=== PATIENT | male | born 1980 | race Caucasian/White ===

== ENCOUNTER 2018-07-08 00:18 | Outpatient (CLI) | payer BC, SELFPAY ==
[2018-07-08 10:00] LABS: ALT 46 U/L (12-78); AST 20 U/L (15-37); Albumin 3.5 g/dL (3.4-5.0); Alkaline Phosphatase 66 U/L (46-116); Anion Gap 9.4 mmol/L (3-11); BUN 15 mg/dL (7-18); Bilirubin, Total 0.7 mg/dL (0.2-1.0); CO2 27.6 mmol/L (21.0-32.0); Calcium 8.3 mg/dL (8.5-10.1); Chloride 103 mmol/L (98-107); Cholesterol 163 mg/dL (50-200); Glucose 104 mg/dL (70-100); HDL Cholesterol 47 mg/dL (40-60); LDL CHOLESTEROL 105 mg/dL (<100); Potassium 3.8 mmol/L (3.5-5.1); Sodium 140 mmol/L (136-145); Total Protein 7.2 g/dL (6.4-8.2); Triglyceride 80 mg/dL (30-150)
== END 2018-07-08 00:38 ==
PROVIDERS: PCP Physician Assistant Medical; Visit Provider Physician Assistant Medical
DX: Z00.00 Encounter for general adult medical examination without abnormal findings (principal); I10 Essential (primary) hypertension
CPT/HCPCS: 36415; 80053; 80061; 83721

== ENCOUNTER 2018-10-29 10:13 | Emergency (ER) | payer OTHER, SELFPAY ==
[2018-10-29 10:36] VITALS: BP 209/104; PULSE 101; RESP 16; TEMP 37.4; O2SAT 97
--- NOTE | 2018-10-29 10:56 | W.ED.GENAD ---
Discharge Plan Disposition Patient Disposition: HOME Condition: Improving Discharge Details Chief Complaint: Cellulitis Clinical Impression: Cellulitis of leg, right Primary Care Provider: Robert Cottrell ED Provider: Pierre Kan Home Meds and New Rx's Prescriptions: New cefdinir 300 mg capsule 300 mg PO Q12H 10 Days Qty: 20 RF: 0 No Action hydrochlorothiazide 25 MG tablet 50 mg PO QAM RF: 0 amlodipine 10 mg Tablet 10 mg PO DAILY RF: 0 losartan 100 mg Tablet 100 mg PO DAILY RF: 0 Discharge Instructions Instructions: Cellulitis (ED) Additional Instructions: We will arrange a follow-up appointment for you to [facility]. Home to rest today. Elevate the leg above the level of heart to reduce swelling. Take antibiotics as prescribed, next dose tomorrow morning. 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 Associate with fever and shaking chills. IV placed, labs including blood cultures obtained, patient referred for x-ray to rule out underlying bony changes. Patient does have white blood cell count of 9, lactic acid 1.5. Patient given a liter fluid, 2 g of ceftriaxone. His x-ray does not reveal underlying evidence of osteomyelitis. Improved following liter of fluid and antibiotics. I will place on oral cephalosporin. We will ask care management to arrange an outpatient follow-up with [facility] later this week. Discussed home care as well as return precautions to the ER with the patient and his mother prior to discharge Lab Data Lab results reviewed: Yes I reviewed the patient's lab results. Laboratory Results - last 24 hr 10/29/18 10/29/18 10/29/18 11:39 11:39 11:39 WBC 9.43 RBC 5.66 Hgb 15.6 Hct 45.6 MCV 80.6 MCH 27.6 MCHC 34.2 RDW 13.5 Plt Count 222 MPV 10.1 Immature Gran % 0.1 Neutrophils % 83.9 Lymphocytes % 8.7 Monocytes % 6.8 Eosinophils % 0.4 Basophils % 0.1 Absolute Neutrophils 7.91 H Absolute Lymphocytes 0.82 L Absolute Monocytes 0.64 Absolute Eosinophils 0.04 Absolute Basophils 0.01 Sodium 135 L Potassium 3.4 L Chloride 96 L Carbon Dioxide 32.7 H Anion Gap 6.3 BUN 13 Creatinine 1.08 Estimated GFR/1.73 m2 >= 60.00 Glucose 97 Lactate 1.5 H Calcium 9.3 Total Bilirubin 1.0 AST 18 ALT 37 Alkaline Phosphatase 64 Total Protein 8.7 H Albumin 3.8 HPI General Mode of arrival: ambulatory. Date/Time Provider Initiated Documentation: 10/29/18 10:37. Limitations to Documentation: no limitations. Information obtained by: patient and family. History of Present Illness 38 year old M presents to the emergency department with the chief complaint of Right distal tibia swelling, erythema that began yesterday, described as moderate, Quality is described as aching, dull and constant, and is localized to the right and lower extremity. Patient reports no radiation. Patient started experiencing this day(s) and it has been constant. No relieving factors improve symptom(s), No exacerbating factors reported . Patient notes fever/chills. Patient did receive the following treatments prior to arrival, none Related Data Home Medications Medication Instructions Recorded Confirmed hydrochlorothiazide 50 mg PO QAM 12/01/13 10/29/18 amlodipine 10 mg PO DAILY 10/29/18 10/29/18 cefdinir 300 mg PO Q12H 10 Days #20 cap 10/29/18 losartan 100 mg PO DAILY 10/29/18 10/29/18 Previous Rx's Medication Instructions Recorded cefdinir 300 mg PO Q12H 10 Days #20 cap 10/29/18 Allergies Allergy/AdvReac Type Severity Reaction Status Date / Time amoxicillin [Amoxicillin] Allergy Unverified 10/29/18 10:40 General Stated Complaint: Cellulitis PAULINO: 4 Review of Systems Review of Systems 8 systems reviewed and otherwise negative [facility] Social History Smoking/Tobacco Use Status: Current every day Exam Narrative Exam Narrative: GEN: awake, alert, oriented 3. Pleasant, well groomed, interactive. HEAD: Normocephalic, atraumatic ENT: Mucous membranes moist, oropharynx unremarkable, External ear exam unremarkable EYES: PERRL, EOMI NECK: Full ROM, no ELLIOTT, no menigismus CHEST/RESP: Nontender, clear to auscultation bilateral, no wheeze/rhonchi/rales CARDIOVASCULAR: RRR, no murmur, rub jairon. 2+ Rad pulse bilateral ABDOMEN: Soft, nontender, no mass. +Bowel sounds EXT: Full ROM, right pretibial trace edema, erythema, mild tenderness. No significant skin breakdown. No lesions. 2+ DP bilaterally. Neuro: Grossly normal neurologic exam, conversant, interactive. Psych: Speech fluent, thoughts congruent, affect normal Course Vital Signs Temperature 37.4 C 10/29/18 10:36 Pulse 101 H 10/29/18 10:36 Respiratory Rate 16 10/29/18 10:36 Blood Pressure 209/104 H 10/29/18 10:36 Pulse Oximetry 97 10/29/18 10:36 Temperature 37.4 C 10/29/18 10:36 Pulse 101 H 10/29/18 10:36 Respiratory Rate 16 10/29/18 10:36 Respiratory Effort Non-Labored 10/29/18 10:38 Blood Pressure 209/104 H 10/29/18 10:36 Blood Pressure Position Sitting 10/29/18 10:36 Pulse Oximetry 97 10/29/18 10:36 Oxygen Delivery Method Room Air 10/29/18 10:36 Oxygen Flow Rate 0 10/29/18 10:36 Pain Level 6 10/29/18 10:36
[2018-10-29 11:49] LABS: Abs Immature Grans 0.01 k/cumm (0.0-0.09); Absolute Basophil Count 0.01 k/cumm (0.0-0.2); Absolute Eosinophil Count 0.04 k/cumm (0.0-0.7); Absolute Lymphocyte Count 0.82 k/cumm (1.2-3.4); Absolute Monocyte Count 0.64 k/cumm (0.11-0.7); Absolute Neutrophil Count 7.91 k/cumm (1.2-6.7); Basophils % 0.1; Eosinophils % 0.4; HCT 45.6 % (40.0-50.0); HGB 15.6 g/dL (13.5-17.5); Immature Grans % 0.1; Lymphocytes % 8.7; Mean Corp. HGB Concentration 34.2 g/dL (32.0-36.0); Mean Corpuscular Hemoglobin 27.6 pg (27.0-33.0); Mean Corpuscular Volume 80.6 fL (80-95); Mean Platelet Volume 10.1 fL (8.0-11.0); Monocytes % 6.8; Neutrophils % 83.9; Platelet Count 222 x1000/uL (130-400); RBC 5.66 m/cumm (4.50-6.00); RBC Distribution Width 13.5 % (11.8-14.1); White Blood Cell Count 9.43 k/cumm (4.4-10.8)
[2018-10-29 11:50] LABS: Lactate-non-spesis 1.5 mmol/l (0.6-1.4)
[2018-10-29 12:08] LABS: ALT 37 U/L (12-78); AST 18 U/L (15-37); Albumin 3.8 g/dL (3.4-5.0); Alkaline Phosphatase 64 U/L (46-116); Anion Gap 6.3 mmol/L (3-11); BUN 13 mg/dL (7-18); CO2 32.7 mmol/L (21.0-32.0); CREATININE 1.08 mg/dL (0.70-1.30); Calcium 9.3 mg/dL (8.5-10.1); Chloride 96 mmol/L (98-107); Glucose 97 mg/dL (70-100); Potassium 3.4 mmol/L (3.5-5.1); Sodium 135 mmol/L (136-145); Total Protein 8.7 g/dL (6.4-8.2)
--- NOTE | 2018-10-29 12:31 | DI.RAD_ITS ---
SYMPTOM/DIAGNOSIS: RT DISTAL ANT SWELLING, PAIN RIGHT TIBIA AND FIBULA: There are no prior comparison exams. An intramedullary sue is seen in the tibia. There are old healed fractures of the proximal and distal portions of the fibula. No acute fracture is seen. The knee and ankle are unremarkable and show mild degenerative changes. IMPRESSION: No acute abnormality.
[2018-10-29] MEDS: Normal Saline 1,000 ML 1000 ML IV (12:39)
--- NOTE | 2018-10-29 13:52 | DI.VRAD_ITS ---
EXAM: XR Right Tibia and Fibula, 2 Views EXAM DATE/TIME: 10/29/2018 10:56 AM CLINICAL HISTORY: 38 years old, male; Signs and symptoms; Swelling, leg or foot; Prior surgery; Surgery date: 6+ months; Surgery type: Screws in proximal and distal tibia TECHNIQUE: XR Right tibia and fibula 2 views COMPARISON: No relevant prior studies available. FINDINGS: Bones/joints: A longstem intramedullary sue extends through the tibia, secured with one screw proximally and 2 screws distally. It traverses a chronic appearing fracture of the distal shaft. There are also chronic appearing fractures of the fibula in its proximal to mid and distal aspects. No acute fracture is identified. The partially evaluated knee and ankle joints appear normally aligned and demonstrate degenerative changes. Soft tissues: The soft tissues appear grossly unremarkable. IMPRESSION: Remote posttraumatic, postoperative changes as described. Dictated and Authenticated by: Galindo Martinez MD. Ordering:SRINI Jay MD
--- NOTE | 2018-10-30 08:23 | PDOC.ERCMPRO ---
Care Management Progress Note 10/30-Dr. Kan requested assistance with a PCP (Simba) f/u on 10/30 for right leg cellulitis. Referral faxed to [facility] this am.
== END 2018-10-29 13:46 | disposition home or self-care (01) ==
PROVIDERS: Emergency Provider Emergency Medicine; PCP Physician Assistant Medical
DX: R60.0 Localized edema (principal); R50.9 Fever, unspecified; L03.115 Cellulitis of right lower limb; I10 Essential (primary) hypertension
CPT/HCPCS: 36415; 80053; 87040; 96361; 96365; 99284; 73590; 83605; 85025

== ENCOUNTER 2018-11-03 19:01 | Outpatient (REF) | payer OTHER, SELFPAY | END 2018-11-03 19:21 | LOC: NCHCN 19:01 | PROVIDERS: PCP Physician Assistant Medical; Visit Provider Physician Assistant Medical | DX: L03.115 Cellulitis of right lower limb (principal) | CPT/HCPCS: 87070; 87205 ==

== ENCOUNTER 2019-03-30 19:37 | Outpatient (REF) | payer OTHER, SELFPAY ==
[2019-03-30 19:14] LABS: Anion Gap 14.1 mmol/L (3-11); BUN 16 mg/dL (7-18); CO2 25.9 mmol/L (21.0-32.0); CREATININE 1.06 mg/dL (0.70-1.30); Chloride 102 mmol/L (98-107); Glucose 93 mg/dL (70-100); Potassium 3.1 mmol/L (3.5-5.1); Sodium 142 mmol/L (136-145)
== END 2019-03-30 19:57 ==
LOC: NCHCN 19:37
PROVIDERS: PCP Physician Assistant Medical; Visit Provider Physician Assistant Medical
DX: I10 Essential (primary) hypertension (principal)
CPT/HCPCS: 80048

== ENCOUNTER 2019-04-25 01:20 | Outpatient (CLI) | payer OTHER, SELFPAY ==
--- NOTE | 2019-04-25 14:45 | NS.NUTBLAN_ITS ---
DESCRIPTION: Rai Steven presents for nutrition consult in preparation for bariatric surgery. WEIGHT TODAY: 381.2 HEIGHT: 74 BMI: 49 Rai states he has tried multiple weight loss plans without success. He has been overweight most of his life. He does not feel he has an alternative way to lose weight. He recognizes his health risks at this weight. He eats mostly wild game with bread and pasta. He loves vegetables but does not eat them daily. He has 3 eggs wit htoast and coffee for breakfast; sandwich for lunch; last night he had steak and cottage cheese for supper. He does not eat fruit but wonders about avocado for his spread on toast. He states he eats very fast and is trying to slow down recognizing he can eat beyond fullness when he eats fast. He does not drink soda. 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 He denies stress. INTERVENTION: Discussed balanced meal plan includes vegetables and fruit daily and he agrees to this. Discussed portion control; his eating style. Discussed possible changes for preparation for surgery with the focus on portions. PLAN: Rai will continue to be aware of speed he eats and slow down; consider his portions and attempt to start with normal portions that include 1/2 his plate as vegetable; use 1/2 avocado daily instead of other fats per his desire
== END 2019-04-25 01:40 ==
PROVIDERS: PCP Physician Assistant Medical; Visit Provider Dietitian, Registered
DX: E66.01 Morbid (severe) obesity due to excess calories (principal); Z68.42 Body mass index [BMI] 45.0-49.9, adult; Z01.818 Encounter for other preprocedural examination; Z71.3 Dietary counseling and surveillance
CPT/HCPCS: 97802

== ENCOUNTER 2019-04-25 22:37 | Outpatient (REF) | payer OTHER, SELFPAY ==
[2019-04-25 20:24] LABS: Anion Gap 9.6 mmol/L (3-11); BUN 22 mg/dL (7-18); CO2 27.4 mmol/L (21.0-32.0); CREATININE 0.81 mg/dL (0.70-1.30); Calcium 9.4 mg/dL (8.5-10.1); Chloride 105 mmol/L (98-107); Glucose 96 mg/dL (70-100); Potassium 3.5 mmol/L (3.5-5.1); Sodium 142 mmol/L (136-145)
== END 2019-04-25 22:57 ==
LOC: NCHCN 22:37
PROVIDERS: PCP Physician Assistant Medical; Visit Provider Physician Assistant Medical
DX: I10 Essential (primary) hypertension (principal)
CPT/HCPCS: 80048

== ENCOUNTER 2019-05-24 00:49 | Outpatient (CLI) | payer OTHER, SELFPAY ==
--- NOTE | 2019-05-24 15:00 | NS.NUTBLAN_ITS ---
DESCRIPTION: Antonio Steven presents for nutrition consult for his second bariatric surgery visit. WEIGHT: 386.4 HEIGHT: 74 BMI: 49.6 Antonio has increased fruits and vegetables describing recipes he has used for [employer] [facility] [facility]. He has cut down pasta, ice cream, removed sugar from coffee, cut portions overall, and has only an occasional candy bar. He has 6 eggs and 2 toast in AM, He does take 2 sandwiches for lunch and often eats them early. He is physically active only if it occurs at work. INTERVENTION: Discussed hunger and he feels he truly is hungry when he eats. Discussed cutting down on bread with suggestions for a portable lunch. He does not drink carbonated beverages. He wants to increase his physical activity and has a treadmill ordered. PLAN: He will add multivitamin He will increase his physical activity when his treadmill arrives
== END 2019-05-24 01:09 ==
PROVIDERS: PCP Physician Assistant Medical; Visit Provider Dietitian, Registered
DX: E66.01 Morbid (severe) obesity due to excess calories (principal); Z71.3 Dietary counseling and surveillance
CPT/HCPCS: 97803

== ENCOUNTER 2019-12-24 08:53 | Outpatient (REF) | payer OTHER, SELFPAY ==
[2019-12-24 19:23] LABS: Calculated LDL 114 mg/dL (<100); Cholesterol 171 mg/dL (<200); HDL Cholesterol 42 mg/dL (40-60); Triglyceride 79 mg/dL (<150)
== END 2019-12-24 09:13 ==
LOC: NCHCN 08:53
PROVIDERS: PCP Physician Assistant Medical; Visit Provider Physician Assistant Medical
DX: I10 Essential (primary) hypertension (principal)
CPT/HCPCS: 80053; 80061

== ENCOUNTER 2020-03-25 10:19 | Outpatient (REF) | payer OTHER, SELFPAY ==
[2020-03-25 19:22] LABS: ALT 37 U/L (16-63); AST 18 U/L (15-37); Albumin 3.6 g/dL (3.4-5.0); Alkaline Phosphatase 57 U/L (46-116); Anion Gap 9.6 mmol/L (3-11); BUN 15 mg/dL (7-18); Bilirubin, Total 0.5 mg/dL (0.2-1.0); CO2 25.4 mmol/L (21.0-32.0); CREATININE 0.91 mg/dL (0.70-1.30); Calcium 9.3 mg/dL (8.5-10.1); Chloride 102 mmol/L (98-107); Glucose 110 mg/dL (74-106); Potassium 3.7 mmol/L (3.5-5.1); Sodium 137 mmol/L (136-145); Total Protein 7.2 g/dL (6.4-8.2)
== END 2020-03-25 10:39 ==
LOC: NCHCN 10:19
PROVIDERS: PCP Physician Assistant Medical; Visit Provider Physician Assistant Medical
DX: I10 Essential (primary) hypertension (principal)
CPT/HCPCS: 80053

== ENCOUNTER 2020-12-12 18:59 | Outpatient (REF) | payer OTHER, SELFPAY ==
[2020-12-12 19:06] LABS: Hemoglobin A1C 5.5 % (<5.7)
[2020-12-12 19:12] LABS: ALT 35 U/L (16-63); AST 16 U/L (15-37); Albumin 3.9 g/dL (3.4-5.0); Alkaline Phosphatase 66 U/L (46-116); Anion Gap 7.6 mmol/L (3-11); BUN 18 mg/dL (7-18); Bilirubin, Total 0.5 mg/dL (0.2-1.0); CO2 29.4 mmol/L (21.0-32.0); CREATININE 0.9 mg/dL (0.70-1.30); Calcium 9.6 mg/dL (8.5-10.1); Calculated LDL 119 mg/dL (<100); Chloride 105 mmol/L (98-107); Cholesterol 198 mg/dL (<200); Glucose 95 mg/dL (74-106); HDL Cholesterol 45 mg/dL (40-60); Potassium 3.4 mmol/L (3.5-5.1); Sodium 142 mmol/L (136-145); Total Protein 7.5 g/dL (6.4-8.2); Triglyceride 173 mg/dL (<150)
== END 2020-12-12 19:00 | disposition home or self-care (01) ==
LOC: NCHCN 18:59
PROVIDERS: PCP Physician Assistant Medical; Visit Provider Physician Assistant Medical
DX: I10 Essential (primary) hypertension (principal); E66.01 Morbid (severe) obesity due to excess calories
CPT/HCPCS: 80053; 80061; 83036

== ENCOUNTER 2021-06-29 08:31 | Outpatient (REF) | payer OTHER, SELFPAY ==
--- OUTSIDE RECORDS SUMMARY | 2021-06-29 08:32 | XMS_ITS ---
:1980 Author Care Team Providers Name Role Phone DELL MILES Primary Care Provider [phone] [facility] OTHER [phone] Allergies Code Code System Name Reaction Severity Status Onset 723 RxNorm Amoxicillin ? ? Active ? 3640 RxNorm Doxycycline ? ? Active ? Medications Name Status Start Date Stop Date ? ? amlodipine 10 mg tablet Active ? Not avai lable cefdinir 300 mg capsule Completed ? 12/07/19 hydrochlorothiazide 50 mg tablet Active ? Not available losartan 100 mg tablet Active ? Not avail able Problems Name Status Onset Date Source ? Morbid Obesity Active ? ? Impotence Active ? ? Obstructive Sleep Apnea Syndrome Active ? ? Hypertensive Disorder Active ? ? Snoring Active ? ? Decreased Testosterone Level Active ? ? Procedures None recorded. Results Lab Results None recorded. Past Encounters None recorded. Social History Tobacco Smoking Status Never Smoker Vaccine List Vaccine Type COVID-19, mRNA, LNP-S, PF, 100 mcg/0.5 m L dose 12/23/2020?100 mcg 01/20/2021?0.5 mL Plan of Care Reminders Provider Appointments None ? ? recorded. Lab None ? ? recorded. Referral None ? ? recorded. Procedures None ? ? recorded. Surgeries None ? ? recorded. Imaging None ? ? recorded. Vitals 06/13/2019 10:15AM Office 30 Height Weight BMI Blood Pressure 185.42 cm 179.17 kg 52.1 kg/m2 175/89 mm[Hg] 02/09/2019 08:30AM Office 30 Height Weight BMI Blood Pressure 185.42 cm 175.54 kg 51.1 kg/m2 130/74 mm[Hg] 12/06/2018 09:30AM New Patient 43 Height Weight BMI Blood Pressure 185.42 cm 168.1 kg 48.9 kg/m2 145/86 mm[Hg]
[2021-06-29 14:57] LABS: ALT 38 U/L (16-63); AST 18 U/L (15-37); Albumin 3.7 g/dL (3.4-5.0); Alkaline Phosphatase 54 U/L (46-116); Anion Gap 7.4 mmol/L (3-11); BUN 9 mg/dL (7-18); Bilirubin, Total 0.6 mg/dL (0.2-1.0); CO2 28.6 mmol/L (21.0-32.0); CREATININE 0.9 mg/dL (0.70-1.30); Chloride 106 mmol/L (98-107); Glucose 96 mg/dL (74-106); Potassium 3.6 mmol/L (3.5-5.1); Sodium 142 mmol/L (136-145); Total Protein 7.1 g/dL (6.4-8.2)
== END 2021-06-29 08:32 | disposition home or self-care (01) ==
LOC: NCHCN 08:31
PROVIDERS: PCP Physician Assistant Medical; Visit Provider Physician Assistant Medical
DX: I10 Essential (primary) hypertension (principal)
CPT/HCPCS: 80053

== ENCOUNTER 2021-08-21 14:30 | Outpatient (REF) | payer OTHER, SELFPAY ==
[2021-08-23 12:38] LABS: COVID-19 RT-PCR UVMMC Result Negative (Negative)
== END 2021-08-21 14:31 | disposition home or self-care (01) ==
LOC: NCHCN 14:30
PROVIDERS: PCP Physician Assistant Medical; Visit Provider Physician Assistant Medical
DX: Z20.822 Contact with and (suspected) exposure to COVID-19 (principal); R05.8 Other specified cough
CPT/HCPCS: U0003

== ENCOUNTER 2021-12-11 17:09 | Outpatient (REF) | payer BC, SELFPAY ==
[2021-12-11 12:43] LABS: ALT 40 U/L (16-63); AST 14 U/L (15-37); Albumin 3.7 g/dL (3.4-5.0); Alkaline Phosphatase 57 U/L (46-116); Anion Gap 8.7 mmol/L (3-11); BUN 20 mg/dL (7-18); Bilirubin, Total 0.8 mg/dL (0.2-1.0); CO2 28.3 mmol/L (21.0-32.0); Calcium 9.4 mg/dL (8.5-10.1); Calculated LDL 133 mg/dL (<100); Chloride 106 mmol/L (98-107); Cholesterol 219 mg/dL (<200); Glucose 118 mg/dL (74-106); HDL Cholesterol 53 mg/dL (40-60); Potassium 3.9 mmol/L (3.5-5.1); Sodium 143 mmol/L (136-145); Total Protein 6.9 g/dL (6.4-8.2); Triglyceride 166 mg/dL (<150)
== END 2021-12-11 17:10 | disposition home or self-care (01) ==
LOC: NCHCN 17:09
PROVIDERS: PCP Physician Assistant Medical; Visit Provider Physician Assistant Medical
DX: I10 Essential (primary) hypertension (principal)
CPT/HCPCS: 80053; 80061

== ENCOUNTER 2022-02-12 17:26 | Outpatient (REF) | payer BC, SELFPAY | END 2022-02-12 17:27 | disposition home or self-care (01) | LOC: LBN 17:26 | PROVIDERS: PCP Physician Assistant Medical; Visit Provider Urology ==

== ENCOUNTER 2022-12-03 14:45 | Outpatient (REF) | payer BC, SELFPAY ==
[2022-12-03 15:27] LABS: ALT 56 U/L (16-63); AST 26 U/L (15-37); Albumin 3.7 g/dL (3.4-5.0); Alkaline Phosphatase 55 U/L (46-116); Anion Gap 9.7 mmol/L (3-11); BUN 19 mg/dL (7-18); Bilirubin, Total 0.7 mg/dL (0.2-1.0); CO2 27.3 mmol/L (21.0-32.0); CREATININE 0.9 mg/dL (0.70-1.30); Calcium 9.4 mg/dL (8.5-10.1); Chloride 106 mmol/L (98-107); Estimated GFR 108.01 (mL/min/1.73m2); Glucose 111 mg/dL (74-106); Potassium 3.5 mmol/L (3.5-5.1); Sodium 143 mmol/L (136-145); Total Protein 7.4 g/dL (6.4-8.2)
[2022-12-03 16:15] LABS: Calculated LDL 102 mg/dL (<100); Cholesterol 179 mg/dL (<200); HDL Cholesterol 46 mg/dL (40-60); Triglyceride 157 mg/dL (<150)
== END 2022-12-03 14:46 | disposition home or self-care (01) ==
LOC: NCHCN 14:45
PROVIDERS: PCP Physician Assistant Medical; Visit Provider Physician Assistant Medical
DX: I10 Essential (primary) hypertension (principal)
CPT/HCPCS: 80053; 80061

== ENCOUNTER 2023-12-16 09:41 | Outpatient (REF) | payer BC, SELFPAY ==
[2023-12-16 15:48] LABS: ALT 32 U/L (16-63); AST 21 U/L (15-37); Albumin 3.5 g/dL (3.4-5.0); Alkaline Phosphatase 62 U/L (46-116); Anion Gap 10.5 mmol/L (3-11); BUN 18 mg/dL (7-18); Bilirubin, Total 0.7 mg/dL (0.2-1.0); CO2 27.5 mmol/L (21.0-32.0); CREATININE 0.9 mg/dL (0.70-1.30); Calcium 9.6 mg/dL (8.5-10.1); Calculated LDL 106 mg/dL (<100); Chloride 106 mmol/L (98-107); Cholesterol 176 mg/dL (<200); Estimated GFR 107.33 (mL/min/1.73m2); Glucose 81 mg/dL (74-106); HDL Cholesterol 50 mg/dL (40-60); Potassium 3.7 mmol/L (3.5-5.1); Sodium 144 mmol/L (136-145); Total Protein 7.9 g/dL (6.4-8.2); Triglyceride 103 mg/dL (<150)
[2023-12-16 16:25] LABS: Hemoglobin A1C 5.5 % (<5.7)
== END 2023-12-16 09:42 | disposition home or self-care (01) ==
LOC: NCHCN 09:41
PROVIDERS: PCP Physician Assistant Medical; Visit Provider Physician Assistant Medical
DX: I10 Essential (primary) hypertension (principal); E66.8 Other obesity; Z13.1 Encounter for screening for diabetes mellitus
CPT/HCPCS: 80053; 80061; 83036

== ENCOUNTER 2024-12-12 19:13 | Outpatient (REF) | payer BC, SELFPAY ==
[2024-12-12 21:58] LABS: Hemoglobin A1C 5.4 % (<5.7)
[2024-12-12 22:10] LABS: ALT 21 U/L (16-63); AST 11 U/L (15-37); Albumin 3.7 g/dL (3.4-5.0); Alkaline Phosphatase 71 U/L (46-116); Anion Gap 8.3 mmol/L (3-11); BUN 18 mg/dL (7-18); Bilirubin, Total 0.4 mg/dL (0.2-1.0); CO2 28.7 mmol/L (21.0-32.0); Calcium 9.6 mg/dL (8.5-10.1); Calculated LDL 106 mg/dL (<100); Chloride 106 mmol/L (98-107); Cholesterol 203 mg/dL (<200); Glucose 93 mg/dL (74-106); HDL Cholesterol 51 mg/dL (>or=40); Potassium 3.6 mmol/L (3.5-5.1); Sodium 143 mmol/L (136-145); Total Protein 7.7 g/dL (6.4-8.2); Triglyceride 234 mg/dL (<150)
== END 2024-12-12 19:14 | disposition home or self-care (01) ==
LOC: NCHCN 19:13
PROVIDERS: PCP Physician Assistant Medical; Visit Provider Physician Assistant Medical
DX: R73.03 Prediabetes (principal)
CPT/HCPCS: 80053; 80061; 83036